=== PATIENT | female | born 1950 | race Caucasian/White ===

== ENCOUNTER 2016-09-20 06:11 | Day surgery (SDC) | payer MEDICARE ==
[~2016-09-20 06:11] MED LIST: LACTATED RINGERS 1,000 ML IV SCH; SODIUM CHLORIDE 0.9% 1,000 ML IV SCH
[2016-09-20] MEDS ORDERED: SODIUM CHLORIDE 0.9% 1,000 ML IV ONE (06:59)
[2016-09-20 07:04] VITALS: TEMP 97.6
[2016-09-20] MEDS: BENZOCAINE SPRAY 100 APPLIC/CAN MUCOUS MEM ONE ×2 (07:30→07:40)
[2016-09-20 07:31] LABS: Anion Gap 9 mmol/L; Blood Urea Nitrogen 16 mg/dL (7-17); Calcium 9.4 mg/dL (8.4-10.2); Carbon Dioxide 30 mmol/L (22-30); Chloride 102 mmol/L (98-107); Glucose 85 mg/dL (74-99); Non-African American GFR(MDRD) >60 (>60 ml/min/1.73 sqM); Potassium 4.2 mmol/L (3.5-5.1); Sodium 141 mmol/L (137-145)
[2016-09-20] MEDS ORDERED: PROPOFOL 10 MG/ML 20 ML VIAL IV ONE (07:35)
[2016-09-20] MEDS ORDERED: LIDOCAINE 1% INJ 10MG/ML (20 ML MDV) ONE (07:35)
[2016-09-20] MEDS ORDERED: SODIUM CHLORIDE 0.9% 1,000 ML IV SCH (08:00)
--- NOTE | 2016-09-20 08:07 | ECHOT ---
DATE OF SERVICE: CLINICAL INFORMATION: PROCEDURE: Transesophageal echo. INDICATION: Chronic atrial fibrillation. PROCEDURE NOTE: After obtaining informed consent, transesophageal echocardiogram was performed in the left lateral position using an Omniplane probe. Local and IV sedation were given by the patient sitter. FINDINGS: 1. There is no intracardiac thrombus within the left atrial appendage, left atrium, right atrium and right ventricle. 2. Left atrium appears enlarged. 3. Right atrium and right ventricle within normal limits. 4. Left ventricle has normal size and systolic function. 5. Aortic valve is a 3 leaflet valve. There is trace aortic regurgitation noted. 6. Aorta appears normal. 7. Interatrial septum. There is evidence of [id number] shunt by color flow Doppler or [id number] shunt by ( ) saline contrast study. 8. Mitral valve shows mild prolapse of the mitral leaflets. 9. There is mild tricuspid regurgitation noted. CONCLUSION: No intracardiac thrombus. PLAN: Patient will undergo cardioversion.
--- NOTE | 2016-09-20 08:11 | CE ---
DATE OF SERVICE: PROCEDURE PERFORMED: Cardioversion. INDICATION: Chronic atrial fibrillation. Patient is adequately anticoagulated with Xarelto and absence of intracardiac thrombus was ( ). No intracardiac thrombus was noted on the transesophageal echo. PROCEDURE NOTE: After obtaining informed consent, electrical cardioversion was performed with 200 joules of DC current. Patient was anesthetized by the community development manager. Patient converted to sinus rhythm and remained in sinus rhythm and she will have a postconversion EKG.
[2016-09-20 08:31] VITALS: RESP 16
[2016-09-20 09:59] VITALS: BP 145/67; PULSE 59
== END 2016-09-20 09:20 | disposition home or self-care (01) ==
LOC: CATHCVL 06:11 → EDSEX 07:30 → CATHCVL 09:20
PROVIDERS: ATTEND Internal Medicine Cardiovascular Disease
DX: I48.2 Chronic atrial fibrillation (principal); Z87.891 Personal history of nicotine dependence; Z79.899 Other long term (current) drug therapy; Z79.01 Long term (current) use of anticoagulants
CPT/HCPCS: 93312; 93320; 93005; 93325; 92960; 80048; J2001; J2704